=== PATIENT | female | born 1990 | race Caucasian/White ===

== ENCOUNTER 2018-02-28 17:38 | Emergency (ER) | payer MEDICAID ==
[~2018-02-28] VITALS: Ht 160 cm; Wt 45.5 kg
[~2018-02-28 17:38] MED LIST: AMOX-291 PO; AMOX875T PO; CLON1TAB11 PO; FLUC200T PO; HYDR1TAB14 PO; ZOLP10TA PO
[2018-02-28] MEDS ORDERED: LIDOCAINE 2%, 20ML INFIL ONE (18:00)
[2018-02-28] MEDS ORDERED: ACETAMINOPHEN 500 MG TABLET PO ONE (18:00)
[2018-02-28] MEDS ORDERED: PLEASE ENTER HEIGHT AND WEIGHT MC SCH (18:00)
[2018-02-28] MEDS ORDERED: SODIUM CHLORIDE FLUSH 10ML SYR IVF ONE (18:00)
[2018-02-28] MEDS ORDERED: LIDOCAINE-MPF 2% ,5ML ONE (18:19)
[2018-02-28] MEDS ORDERED: KETOROLAC 30 MG/1 ML ONE (18:26)
[2018-02-28] MEDS ORDERED: KETOROLAC 30 MG/1 ML IVPush ONE (18:30)
[2018-02-28] MEDS ORDERED: ACETAMINOPHEN 500 MG TABLET ONE (18:40)
[2018-02-28 18:41] LABS: BASOPHILS # (AUTO) 0.03 x10^3/uL (0-0.1); BASOPHILS % (AUTO) 1 % (0-1); EOSINOPHILS # (AUTO) 0.41 x10^3/uL (0-0.4); EOSINOPHILS % (AUTO) 7 % (1-7); LYMPHOCYTES # (AUTO) 1.39 x10^3/uL (1-3.4); LYMPHOCYTES % (AUTO) 25 % (22-44); MD NO; MEAN CORPUSCULAR HGB CONC 31.4 g/dL (32.4-35.8); MEAN CORPUSCULAR VOLUME 70.1 fL (80-100); MEAN PLATELET VOLUME 10.5 fL (7.4-10.4); MONOCYTES # (AUTO) 0.33 x10^3/uL (0.2-0.8); MONOCYTES % (AUTO) 6 % (2-9); NEUTROPHILS # (AUTO) 3.46 x10^3/uL (1.8-6.8); NEUTROPHILS % (AUTO) 62 % (42-75); PLATELET COUNT 300 x10^3/uL (130-400); RED BLOOD COUNT 5.02 x10^6/uL (3.82-5.3)
[2018-02-28 18:46] LABS: ALANINE AMINOTRANSFERASE 79 U/L (12-78); ALBUMIN 3.1 g/dL (3.4-5.0); ANION GAP 5 mmol/L (5-15); CALCIUM 8.7 mg/dL (8.5-10.1); CHLORIDE 108 mmol/L (98-107); CREATININE 0.64 mg/dL (0.55-1.02)
[2018-02-28 18:48] LABS: ALKALINE PHOSPHATASE 165 U/L (45-117); BILIRUBIN,TOTAL 0.5 mg/dL (0.2-1.0); TOTAL PROTEIN 7.8 g/dL (6.4-8.2)
[2018-02-28] MEDS ORDERED: CLINDAMYCIN 150 MG CAPSULE ONE (19:04)
[2018-02-28] MEDS ORDERED: DIPH,PERTUSS(ACELL),TET VAC/PF 0.5 ML IM-VACC ONE ×2 (19:20→19:30)
[2018-02-28 19:25] VITALS: BP 119/79
[2018-02-28] MEDS ORDERED: CLINDAMYCIN 150 MG CAPSULE PO ONE (19:30)
== END 2018-02-28 19:33 | disposition home or self-care (01) ==
LOC: ED 19:00
DX: L03.113 Cellulitis of right upper limb (principal); F11.10 Opioid abuse, uncomplicated; L02.413 Cutaneous abscess of right upper limb
CPT/HCPCS: 10060; 36415; 71045; 80053; 83605; 85025; 87040; 90471; 90715; 96374; 99285; J1885; J3490